=== PATIENT | female | born 1935 | race Caucasian/White ===

== ENCOUNTER 2022-01-13 16:29 | Emergency (ER) | payer MEDICARE ==
[2022-01-13 17:07] LABS: HEMOGLOBIN 12.7 gm/dl (12.3-15.3); RED BLOOD COUNT 4.33 M/UL (4.00-5.10)
[2022-01-13 17:25] LABS: BUN/CREATININE RATIO 16 (0-10)
[2022-01-13] MEDS ORDERED: METOPROLOL TART25 MG PO (19:41)
[2022-01-13] MEDS ORDERED: ELIQUIS2.5 MG PO (19:41)
== END 2022-01-13 20:00 | disposition home or self-care (01) ==
LOC: ER1 16:29
PROVIDERS: Emergency Medicine
DX: I48.91 Unspecified atrial fibrillation (principal); U09.9 Post COVID-19 condition, unspecified; G20 Parkinson's disease; E03.9 Hypothyroidism, unspecified; C18.9 Malignant neoplasm of colon, unspecified; C78.00 Secondary malignant neoplasm of unspecified lung; C79.89 Secondary malignant neoplasm of other specified sites; Z93.3 Colostomy status
CPT/HCPCS: 80053; 82550; 82553; 83735; 84439; 84443; 84484; 85025; 85610; 85730; 93005; 96374; 99285; Q9967